=== PATIENT | female | born 1995 | race Caucasian/White ===

== ENCOUNTER → 2019-05-26 | Outpatient (REF) | payer OTHER | LOC: M LAB REF 13:00 | PROVIDERS: ATTEND Plastic Surgery Surgery of the Hand | DX: D49.2 Neoplasm of unspecified behavior of bone, soft tissue, and skin (principal) ==

== ENCOUNTER → 2019-09-11 | Outpatient (REF) | payer OTHER ==
[2019-09-11 16:31] LABS: BASO % 0.2 % (0.0-1.0); EOS # 0.2 10^3/uL (0.0-0.5); HEMATOCRIT 41.8 % (36.0-47.0); HEMOGLOBIN 13.7 g/dl (12.0-15.5); MEAN CORPUSCULAR HEMOGLOBIN 30.2 pg (27.0-33.0); MEAN CORPUSCULAR HGB CONC 32.8 g/dl (32.0-36.5); MEAN CORPUSCULAR VOLUME 92.1 fl (80.0-96.0); MONO # 0.6 10^3/uL (0.0-0.8); MONO % 6.9 % (0.0-5.0); NEUTROPHILS # 5.2 10^3/uL (1.5-8.5); NEUTROPHILS % 57.7 % (36.0-66.0); PLATELET COUNT, AUTOMATED 259 10^3/uL (150-450); RED BLOOD COUNT 4.54 10^6/uL (4.00-5.40); WHITE BLOOD COUNT 9.1 10^3/uL (4.0-10.0)
[2019-09-11 16:41] LABS: ALBUMIN 4.4 GM/DL (3.2-5.2); ALT/SGPT 26 U/L (12-78); BILIRUBIN,TOTAL 0.5 MG/DL (0.2-1.0); BLOOD UREA NITROGEN 11 MG/DL (7-18); CALCIUM LEVEL 9.2 MG/DL (8.5-10.1); CARBON DIOXIDE LEVEL 28 MEQ/L (21-32); CHLORIDE LEVEL 106 MEQ/L (98-107); CHOLESTEROL LEVEL 162 MG/DL (<200); CHOLESTEROL RISK RATIO 4.378 (<5); CREATININE FOR GFR 0.61 MG/DL (0.55-1.30); GLOMERULAR FILTRATION RATE > 60.0 (>60); GLUCOSE, FASTING 76 MG/DL (70-100); HDL CHOLESTEROL 37 MG/DL (>40); LDL CHOLESTEROL 92 MG/DL (<100); NON-HDL-C 125 MG/DL; SODIUM LEVEL 138 MEQ/L (136-145); TOTAL PROTEIN 7.6 GM/DL (6.4-8.2); TRIGLYCERIDES LEVEL 165 MG/DL (<150)
== END ==
LOC: M SFHCPLAZ 12:11
PROVIDERS: ATTEND Physician Assistant Medical
DX: Z00.00 Encounter for general adult medical examination without abnormal findings (principal); Z13.220 Encounter for screening for lipoid disorders

== ENCOUNTER → 2020-07-07 | Outpatient (CLI) | payer BC, OTHER | LOC: M LABSMTC 11:11 | PROVIDERS: ATTEND Pediatrics | DX: Z20.828 Contact with and (suspected) exposure to other viral communicable diseases (principal) ==

== ENCOUNTER → 2020-08-04 | Outpatient (REF) | payer OTHER ==
[2020-08-04 16:47] LABS: FREE T4 0.92 NG/DL (0.76-1.46); THYROID STIMULATING HORMONE 0.764 uIU/ML (0.358-3.740)
[2020-08-04 17:38] LABS: HEMOGLOBIN A1c 4.9 %
== END ==
LOC: M SFHCPLAZ 14:01
PROVIDERS: ATTEND Physician Assistant Medical
DX: Z86.19 Personal history of other infectious and parasitic diseases (principal); E66.3 Overweight

== ENCOUNTER → 2020-11-16 | Outpatient (REF) | LOC: M LABSMTC 12:33 | PROVIDERS: ATTEND Pediatrics | DX: Z11.52 Encounter for screening for COVID-19 (principal) ==

== ENCOUNTER → 2021-03-31 | Outpatient (REF) | LOC: M LABSMTC 10:09 | PROVIDERS: ATTEND Pediatrics | DX: Z11.52 Encounter for screening for COVID-19 (principal) ==

== ENCOUNTER → 2021-04-21 | Outpatient (REF) ==
[2021-04-21 14:10] LABS: RSV AMPLIFICATION NEGATIVE (NEGATIVE)
== END ==
LOC: M LABSMTC 10:29
PROVIDERS: ATTEND Pediatrics
DX: Z11.52 Encounter for screening for COVID-19 (principal)

== ENCOUNTER → 2021-10-07 | Outpatient (REF) | payer OTHER ==
[2021-10-07 16:06] LABS: HEMATOCRIT 40.5 % (36.0-47.0); HEMOGLOBIN 13.6 g/dl (12.0-15.5); MEAN CORPUSCULAR HEMOGLOBIN 30.9 pg (27.0-33.0); MEAN CORPUSCULAR HGB CONC 33.6 g/dl (32.0-36.5); PLATELET COUNT, AUTOMATED 270 10^3/uL (150-450); WHITE BLOOD COUNT 7.7 10^3/uL (4.0-10.0)
[2021-10-07 16:25] LABS: ALBUMIN 4.3 GM/DL (3.2-5.2); ALT/SGPT 20 U/L (12-78); BILIRUBIN,TOTAL 0.3 MG/DL (0.2-1.0); BLOOD UREA NITROGEN 11 MG/DL (7-18); CALCIUM LEVEL 9.3 MG/DL (8.5-10.1); CARBON DIOXIDE LEVEL 28 MEQ/L (21-32); CHLORIDE LEVEL 109 MEQ/L (98-107); CHOLESTEROL LEVEL 142 MG/DL (<200); CREATININE FOR GFR 0.69 MG/DL (0.55-1.30); GLOMERULAR FILTRATION RATE > 60.0 (>60); GLUCOSE, FASTING 80 MG/DL (70-100); HDL CHOLESTEROL 50 MG/DL (>40); LDL CHOLESTEROL 75 MG/DL (<100); NON-HDL-C 92 MG/DL; POTASSIUM SERUM 4.8 MEQ/L (3.5-5.1); SODIUM LEVEL 142 MEQ/L (136-145); TOTAL PROTEIN 7.5 GM/DL (6.4-8.2); TRIGLYCERIDES LEVEL 87 MG/DL (<150)
== END ==
LOC: M SFHCCLAY 10:36
PROVIDERS: ATTEND Nurse Practitioner Family
DX: Z13.220 Encounter for screening for lipoid disorders (principal); D22.9 Melanocytic nevi, unspecified

== ENCOUNTER → 2022-11-01 | Outpatient (CLI) | payer OTHER ==
[2022-11-01 14:40] LABS: HEMATOCRIT 38.5 % (36.0-47.0); HEMOGLOBIN 12.7 g/dl (12.0-15.5); MEAN CORPUSCULAR HEMOGLOBIN 30.4 pg (27.0-33.0); MEAN CORPUSCULAR VOLUME 92.1 fl (80.0-96.0); PLATELET COUNT, AUTOMATED 249 10^3/uL (150-450); RED BLOOD COUNT 4.18 10^6/uL (4.00-5.40); WHITE BLOOD COUNT 11.9 10^3/uL (4.0-10.0)
[2022-11-01 15:32] LABS: HIV 1&2 SCREEN ATELLICA NEGATIVE (NEGATIVE)
[2022-11-01 15:40] LABS: HEPATITIS C VIRUS ABY INDEX < 0.0 INDEX (<0.8)
[2022-11-01 16:08] LABS: GC DNA AMPLIFICATION NEGATIVE (NEGATIVE)
== END ==
LOC: M PLALAB 12:10
PROVIDERS: ATTEND Advanced Practice Midwife
DX: Z34.01 Encounter for supervision of normal first pregnancy, first trimester (principal)

== ENCOUNTER → 2022-12-04 | Outpatient (CLI) | payer OTHER | LOC: M PLALAB 09:35 | PROVIDERS: ATTEND Obstetrics & Gynecology | DX: Z34.92 Encounter for supervision of normal pregnancy, unspecified, second trimester (principal) ==

== ENCOUNTER → 2023-01-02 | Outpatient (CLI) | payer OTHER | LOC: M WHC 08:57 | PROVIDERS: ATTEND Obstetrics & Gynecology | DX: Z34.92 Encounter for supervision of normal pregnancy, unspecified, second trimester (principal) ==

== ENCOUNTER → 2023-03-06 | Outpatient (CLI) | payer OTHER ==
[2023-03-06 14:20] LABS: HEMATOCRIT 34.3 % (36.0-47.0); MEAN CORPUSCULAR HEMOGLOBIN 30.9 pg (27.0-33.0); MEAN CORPUSCULAR HGB CONC 32.1 g/dl (32.0-36.5); MEAN CORPUSCULAR VOLUME 96.3 fl (80.0-96.0); PLATELET COUNT, AUTOMATED 194 10^3/uL (150-450); RED BLOOD COUNT 3.56 10^6/uL (4.00-5.40); WHITE BLOOD COUNT 7.7 10^3/uL (4.0-10.0)
[2023-03-06 15:29] LABS: GC DNA AMPLIFICATION NEGATIVE (NEGATIVE)
== END ==
LOC: M PLALAB 08:36
PROVIDERS: ATTEND Obstetrics & Gynecology
DX: Z34.02 Encounter for supervision of normal first pregnancy, second trimester (principal)

== ENCOUNTER → 2023-05-01 | Outpatient (REF) | payer OTHER | LOC: M SFHCWAGY 13:03 | PROVIDERS: ATTEND Specialist | DX: Z34.83 Encounter for supervision of other normal pregnancy, third trimester (principal) ==

== ENCOUNTER 2023-05-24 15:15 | Inpatient (IN) | payer OTHER ==
[~2023-05-24] VITALS: Ht 160 cm; Wt 81.1 kg
[2023-05-24 15:41] VITALS: BP 141/88
[2023-05-24 17:01] VITALS: BP 144/99
[2023-05-24] MEDS ORDERED: LACTATED RINGER'S 1000 ML IV STA (17:13)
[2023-05-24] MEDS ORDERED: CARBOPROST TROMETHAMINE 250 MCG/ML AMP IM PRN (17:15)
[2023-05-24] MEDS ORDERED: LIDOCAINE 1% MDV 20ML VIAL INFIL PRN (17:15)
[2023-05-24] MEDS ORDERED: TRANEXAMIC ACID INJection 1,000 MG in NS 100 ML IV PRN (17:15)
[2023-05-24] MEDS ORDERED: LR 1,000 ML IV SCH (17:15)
[2023-05-24] MEDS ORDERED: METHYLERGONOVINE MALEATE 0.2MG/ML 1ML VIAL IM PRN (17:15)
[2023-05-24] MEDS ORDERED: OXYTOCIN DRIP 30 UNITS in IV 1 EA IV PRN ×6 (17:15)
[2023-05-24 17:30] VITALS: BP 133/95
[2023-05-24 17:53] LABS: HEMATOCRIT 37.4 % (36.0-47.0); HEMOGLOBIN 12.5 g/dl (12.0-15.5); MEAN CORPUSCULAR HEMOGLOBIN 30.1 pg (27.0-33.0); MEAN CORPUSCULAR HGB CONC 33.4 g/dl (32.0-36.5); MEAN CORPUSCULAR VOLUME 90.1 fl (80.0-96.0); PLATELET COUNT, AUTOMATED 249 10^3/uL (150-450); RED BLOOD COUNT 4.15 10^6/uL (4.00-5.40)
[2023-05-24 18:06] LABS: URIC ACID 5.6 MG/DL (3.1-7.8)
[2023-05-24 18:08] LABS: LDH LACTATE DEHYDROGENASE 192 U/L (120-246)
[2023-05-24 18:09] LABS: ALT/SGPT 11 U/L (7.0-40); AST/SGOT 11 U/L (<34); BILIRUBIN,TOTAL 0.3 MG/DL (0.3-1.2); CREATININE FOR GFR 0.53 MG/DL (0.55-1.30); GLOMERULAR FILTRATION RATE > 60.0 (>60)
[2023-05-24] MEDS: miSOPROStol 50MCG 1/2 TABLET SL SCH ×2 (18:27→23:01)
[2023-05-24 18:29] VITALS: BP 135/93
[2023-05-24 18:33] LABS: CREATININE,RANDOM URINE 39.8 MG/DL
[2023-05-24 18:34] LABS: TOTAL PROTEIN,RANDOM URINE < 6.0 MG/DL (0.0-14.0)
[2023-05-24 22:26] VITALS: BP 141/89
[2023-05-25] VITALS (46 sets, daily range): BP systolic 118–209; BP diastolic 67–122; O2SAT 99
[2023-05-25] MEDS: miSOPROStol 50MCG 1/2 TABLET SL SCH ×3 (03:56→09:55)
[2023-05-25] MEDS ORDERED: PROMETHAZINE 25MG/ML 1ML VIAL IV PRN (07:35)
[2023-05-25] MEDS ORDERED: NALBUPHINE HCL 1MG/0.1ML (100MG/10ML) MDV IV PRN (07:35)
[2023-05-25] MEDS ORDERED: diphenhydrAMINE 50MG/ML VIAL IV PRN (10:25)
[2023-05-25] MEDS ORDERED: NALOXONE INJ 0.4MG/1ML VIAL IV PRN (10:25)
[2023-05-25] MEDS ORDERED: LR 500 ML IV PRN (10:25)
[2023-05-25] MEDS ORDERED: EPIDURAL/PCA KEYS XX PRN (10:25)
[2023-05-25] MEDS ORDERED: ONDANSETRON 4MG 2ML VIAL IV PRN ×2 (10:25→19:30)
[2023-05-25] MEDS ORDERED: ePHEDrine SULFATE 25 MG/5 ML(5MG/ML) SYRINGE IVP PRN (10:25)
[2023-05-25] MEDS ORDERED: FENTANYL/ROPIVACAINE/NACL BAG 100 ML EPIDURAL SCH (10:25)
[2023-05-25] MEDS ORDERED: ceFAZolin SOD 2 GM in IV 1 EA IV STA (11:04)
[2023-05-25] MEDS ORDERED: PNV-TAB2 PO (13:50)
[2023-05-25] MEDS ORDERED: HOME MED LIST COMPLETE! XX SCH (14:00)
[2023-05-25] MEDS ORDERED: OXYTOCIN DRIP 30 UNITS in IV 1 EA IV SCH (15:00)
[2023-05-25] MEDS ORDERED: ANUSOL HC CREAM 30GM TOP PRN (19:30)
[2023-05-25] MEDS ORDERED: MOM 30ML SUSPENSION UDC PO PRN (19:30)
[2023-05-25] MEDS ORDERED: IBUPROFEN 600MG TAB PO PRN (19:30)
[2023-05-25] MEDS ORDERED: RHOGAM 300MCG (1500IU) INJ IM SCH (19:30)
[2023-05-25] MEDS ORDERED: ACETAMINOPHEN TAB 650MG DOSE (2X325MG) PO PRN (19:30)
[2023-05-25] MEDS ORDERED: ceFAZolin SOD 1 GM in D5W MINI-BAG PLUS 50 ML IV SCH (20:00)
[2023-05-25] MEDS: DOCUSATE SODIUM 100MG CAPSULE PO SCH (21:00)
[2023-05-25] MEDS: DIBUCAINE 1% OINTMENT 30GM TOP PRN (21:46)
[2023-05-25] MEDS: IBUPROFEN 800 MG TAB PO PRN (22:02)
[2023-05-25] MEDS: LABETALOL 200 MG TAB PO SCH (23:35)
[2023-05-26] MEDS: ACETAMINOPHEN 500 MG TAB PO PRN ×3 (00:53→16:30)
[2023-05-26 05:46] VITALS: BP 146/71; O2SAT 98
[2023-05-26] MEDS: IBUPROFEN 800 MG TAB PO PRN ×3 (06:04→21:41)
[2023-05-26] MEDS: PRENATAL VITAMINS CHEWABLE TABLET PO SCH (09:07)
[2023-05-26] MEDS: DOCUSATE SODIUM 100MG CAPSULE PO SCH ×2 (09:08→21:41)
[2023-05-26] MEDS: LABETALOL 200 MG TAB PO SCH ×2 (09:08→21:41)
[2023-05-26] MEDS: DIBUCAINE 1% OINTMENT 30GM TOP PRN (17:03)
[2023-05-26 18:00] VITALS: BP 136/71; O2SAT 97
[2023-05-26 22:00] VITALS: BP 131/87; O2SAT 98
[2023-05-27] MEDS: ACETAMINOPHEN 500 MG TAB PO PRN ×2 (00:19→09:07)
[2023-05-27 02:00] VITALS: BP 123/75; O2SAT 97
[2023-05-27 06:00] VITALS: BP 143/82; O2SAT 98
[2023-05-27] MEDS: IBUPROFEN 800 MG TAB PO PRN (06:03)
[2023-05-27 09:00] VITALS: BP 119/69
[2023-05-27] MEDS ORDERED: MEASLES,MUMPS,RUBELLA VACCINE INJ (MMR-II) SC.IMMUN ONE (09:00)
[2023-05-27] MEDS: LABETALOL 200 MG TAB PO SCH (09:00)
[2023-05-27] MEDS: DOCUSATE SODIUM 100MG CAPSULE PO SCH (09:06)
[2023-05-27] MEDS: PRENATAL VITAMINS CHEWABLE TABLET PO SCH (09:06)
[2023-05-27] MEDS ORDERED: LABE20TAB PO (12:27)
[2023-05-27] MEDS ORDERED: IBUP80TA PO (12:27)
== END 2023-05-27 13:09 | disposition home or self-care (01) | DRG 560 ==
LOC: M LDI 15:15 → M OBS 05-25 21:20
PROVIDERS: ADMIT Obstetrics & Gynecology; ATTEND Advanced Practice Midwife
PROC: 3E0P7GC Introduction of Other Therapeutic Substance into Female Reproductive, Via Natural or Artificial Opening (ICD-10-PCS; 2023-05-24)
PROC: 10E0XZZ Delivery of Products of Conception, External Approach (ICD-10-PCS; principal; 2023-05-25)
PROC: 0KQM0ZZ Repair Perineum Muscle, Open Approach (ICD-10-PCS; 2023-05-25)
DX: O48.0 Post-term pregnancy (principal); O99.824 Streptococcus B carrier state complicating childbirth; Z3A.40 40 weeks gestation of pregnancy; O69.81X0 Labor and delivery complicated by cord around neck, without compression, not applicable or unspecified; O32.6XX0 Maternal care for compound presentation, not applicable or unspecified; O70.1 Second degree perineal laceration during delivery; Z37.0 Single live birth